=== PATIENT | male | born 1955 | race Hispanic/Latino ===

== ENCOUNTER → 2017-10-21 | Day surgery (SDC) | payer BC ==
[~2017-10-21] MED LIST: FENTANYL CITRATE/PF 100MCG/2 ML INJ ONE; FLUTICASONE; HYOSCYAMINE SULFATE 0.5 MG/ML AMP ONE; LOSARTAN POTAS100 MG PO; MIDAZOLAM HCL 2 MG/2 ML VIAL ONE; PROPOFOL IV EMULSION 10 MG/ML 50 ML VIAL ONE
--- NOTE | 2017-10-21 13:00 | Operative Report ---
DATE OF PROCEDURE: October 21, 2017 REFERRING PHYSICIAN: Dr. Davidson Walsh. PROCEDURE PERFORMED: Colonoscopy and polypectomy. INDICATIONS FOR COLONOSCOPY: Colorectal cancer screening, personal history of colon polyps. MEDICATION: Patient was done under MAC. Please see anesthesiologist's note. PROCEDURE: With the patient in the left lateral decubitus position, the flexible fiberoptic Olympus colonoscope was inserted into the rectum with ease and advanced all the way to the cecum. The scope was then withdrawn slowly. Mucosa overlying the cecum appeared to be within normal limits. Two polyps were hot biopsied from the ascending colon. Two polyps were hot biopsied from the transverse colon. One polyp was hot biopsied from the descending colon. Diverticular disease was noted in the descending and the sigmoid colon. The rectum appeared to be within normal limits. The scope was then retroflexed into the distal rectum and small internal hemorrhoids were noted, none of which was actively bleeding. The scope was then straightened out. It was subsequently withdrawn. Patient tolerated procedure well. IMPRESSION: 1. Ascending colon polyps times 2 hot biopsied. 2. Transverse colon polyps times 2 hot biopsied. 3. Descending colon polyp times 1 hot biopsied. 4. Diverticulosis. 5. Internal hemorrhoids, none actively bleeding. PLAN: Follow up histology. Initiate high-fiber low-fat diet. Initiate high-fiber supplement. Patient might benefit from a followup colonoscopy in 3 years. Job#: [id number] EV cc:DAVIDSON WALSH MD
== END | disposition home or self-care (01) ==
LOC: OR 08:39
PROVIDERS: ATTEND Internal Medicine Gastroenterology
DX: Z12.11 Encounter for screening for malignant neoplasm of colon (principal); Z86.010 Personal history of colon polyps; K63.5 Polyp of colon; K57.30 Diverticulosis of large intestine without perforation or abscess without bleeding; K64.8 Other hemorrhoids; G47.33 Obstructive sleep apnea (adult) (pediatric); I10 Essential (primary) hypertension; Z85.46 Personal history of malignant neoplasm of prostate; Z01.810 Encounter for preprocedural cardiovascular examination; E66.01 Morbid (severe) obesity due to excess calories; Z68.32 Body mass index [BMI] 32.0-32.9, adult; Z72.0 Tobacco use; Z80.3 Family history of malignant neoplasm of breast; Z80.9 Family history of malignant neoplasm, unspecified
CPT/HCPCS: 45384; 93005; J1980; J2250